=== PATIENT | female | born 1970 | race African-American/Black ===

== ENCOUNTER → 2021-08-19 | Outpatient (CLI) | payer OTHER ==
[~2021-08-19] MED LIST: IOPAMIDOL 370 MG/ML 200 ML INFUS..BTL INJ ONE; METOPROLOL TARTRATE 25 MG TAB ONE; METOPROLOL TARTRATE INJ 1 MG/ML VIAL ONE; NITROGLYCERIN 0.4 MG SUBL ONE; SODIUM CHLORIDE 0.9% 100 ML ONE
[2021-08-19 10:14] LABS: CREATININE, SERUM 0.84 mg/dL (0.57-1.11)
== END ==
LOC: CT 09:17
PROVIDERS: ATTEND Internal Medicine Sleep Medicine
DX: R94.30 Abnormal result of cardiovascular function study, unspecified (principal); I10 Essential (primary) hypertension
CPT/HCPCS: 36415; 75574; 82565; 84520; J7050; Q9967